=== PATIENT | female | born 2000 | race Two or more races ===

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

== ENCOUNTER 2025-06-07 16:43 | Emergency (ER) | payer MEDICAID, SELFPAY ==
[2025-06-07 16:45] VITALS: BMI 24.5
[2025-06-07 16:51] VITALS: BP 124/86; PULSE 100; RESP 16; TEMP 36.9; O2SAT 96
--- NOTE | 2025-06-07 16:56 | XR_ITS ---
Examination: OB Transvaginal ultrasound of the pelvis, complete Technique: Transvaginal sonographic images pelvis performed using griffin scale imaging Exam date and time: June 07, 2025, 1716 hours INDICATIONS: Vaginal bleeding and pelvic pain beginning 2 days ago FINDINGS: Uterus 8.1 cm, CRL 0.2 cm corresponds to 5 weeks 5 days gestational age Cardiac motion 100 bpm No subchorionic hemorrhage Right ovary 3.3 cm arterial flow, 2.4 cm corpus luteum cyst Left ovary 2.2 cm arterial flow IMPRESSION: Viable intrauterine gestation 5 weeks 5 days.
--- NOTE | 2025-06-07 17:04 | PD.EDVAGBL ---
ED OB Contraction Preg RMI/HPI General Chief complaint: Vaginal Bleeding Stated complaint: VAG BLEEDING 6 WEEKS Time Seen by Provider: 06/07/25 16:53 Arrival date/time: 06/07/25 16:43 RME / HPI RME / HPI Narrative: 24-year-old female whose had 1 prior about a year ago with a vaginal live full-term presents, had a copper IUD placed in February of this year, last menstrual period was on April 25, patient had performed a home test about a week ago and it was positive she subsequently went [facility] and was advised that she need to get her IUD out but they were unable to perform it at that clinic so she subsequently went [facility] a different [facility] days later and was told they were unable to do anything about it it was just after leaving that visit that she began to experience some back pain and pelvic cramping as well as some vaginal bleeding. Patient states that she has gone through 3 pads today and her symptoms have been relatively persistent for the past 3 days. Denies any fever, nausea vomiting, dysuria, diarrhea. Patient states that she can feel her strings. Related Data Home Medications ?Medication ?Instructions ?Recorded ?Confirmed vits no.[id number]-ferrous fum 1 tab PO QDAY 08/07/23 08/14/23 27 mg iron-folic acid 800 mcg tablet ( Vitamin) Previous Rx's ?Medication ?Instructions ?Recorded docusate sodium 100 mg capsule 100 mg PO BID #14 caps 08/16/23 (Colace) cephalexin 500 mg capsule 500 mg PO QID 7 days #28 caps 06/07/25 Allergies Allergy/AdvReac Type Severity Reaction Status Date / Time No Known Allergies Allergy Verified 06/07/25 16:45 ED Exam Narrative Physical exam: Constitutional: Patient alert and oriented. Well appearing. No acute distress. Not toxic appearing. Head: Normocephalic, atraumatic. Eyes: Periorbital regions bilaterally normal to inspection. Conjunctiva clear bilaterally. Sclera anicteric bilaterally. Pupils equal, round, reactive to light bilaterally. Extraocular movements intact bilaterally. Mouth/Throat: Mucous membranes moist. No stridor or muffled voice. No trismus. Handling secretions without difficulty. Airway widely patent. Neck: Supple. Trachea midline. No JVD. No nuchal rigidity. Normal range of motion. Respiratory: Normal effort. No accessory muscle use or respiratory distress. Lungs clear to auscultation bilaterally without rhonchi, wheezes, or crackles. Cardiovascular: RRR. Normal S1/S2. No murmurs or rubs. Radial pulses intact bilaterally. Abdomen: Soft. Non-distended. Non-tender throughout. No pulsatile mass. No guarding or rebound. Negative Garcia?s sign. Negative McBurney?s point tenderness. Negative Rovsing?s. Back: No midline tenderness or step-offs. No CVA tenderness to palpation bilaterally. Upper Extremities: No gross deformities. Lower Extremities: No gross deformities. No edema or calf tenderness. Neuro: Speech normal. No gross motor or sensory deficits to upper or lower extremities bilaterally. GCS 15. CN II?XII grossly intact. Skin: Warm, dry, normal color. Psych: Normal affect. Cooperative. Normal insight. : Pelvic deferred Course Quality Measures none Orders Category Date Time Status Administer Rhogam NOW Care 06/07/25 19:03 Active NPO NOW Care 06/07/25 16:56 Active Diet NPO (NOW) Diet 06/07/25 16:56 Active US OB transvaginal Stat Exams 06/07/25 16:56 Completed Beta HCG,Quantitative Stat Lab 06/07/25 17:12 Completed CBC Stat Lab 06/07/25 17:12 Completed CMP [Comprehensive Metabolic Panel] Stat Lab 06/07/25 17:12 Completed Lipase Stat Lab 06/07/25 17:12 Completed RHOGAM [Rho(D) Immune Globulin] Stat Lab 06/07/25 17:12 Results Type and Screen Stat Lab 06/07/25 17:12 Results UA, C/S IF [Urinalysis, C/S if Indicated] Stat Lab 06/07/25 18:16 Completed Acetaminophen Tab [Tylenol Tab] Med 06/07/25 16:56 Discontinued 650 mg PO X1 ONE Reevaluation(s) Reevaluation #1: At the time of reassessment, the patient remains alert and oriented ?3 with GCS 15. Vitals are normal, pain is controlled, and the patient is tolerating oral intake without nausea or vomiting. The patient is agreeable to discharge and verbalizes understanding of the diagnosis, studies, treatment plan, medications (including side effects/precautions), and strict ER return precautions as discussed in the ED. All concerns were addressed, and the patient is comfortable with the plan. Patient remains hemodynamically stable and serial abdominal exams benign without peritonitis. Vital Signs Vital signs: Vital Signs Temperature 98.5 F 06/07/25 16:51 Pulse Rate 100 06/07/25 16:51 Respiratory Rate 16 06/07/25 16:51 Blood Pressure 124/86 H 06/07/25 16:51 Pulse Oximetry (%) 96 06/07/25 16:51 Oxygen Delivery Method Room Air 06/07/25 16:51 Vaginal Bleeding MDM Narrative MDM Narrative: MDM: This patient is in the first trimester of her and after a careful history, physical exam, and evaluation, is found to be at risk of a miscarriage. The likelihood of an ectopic is extremely low. Patient does have asymptomatic bacteriuria will provide Keflex. The patient is instructed to follow-up with an our on-call non acoustic operator within 48-72 hours for re-evaluation, will leave an IUD as removing it at this time will increase risk for miscarriage per COLLECTION AGENT consult. The patient is warned to return to the ED if she develops significant bleeding, dizziness, syncope, or severe pain. Patient data External records reviewed:: [facility] previous records Clinical information provided by:: patient Social determinants that could affect healthcare access:: none Patient has the following chronic illnesses:: None How is presenting disease/condition affected by chronic disease/condition?: no chronic disease Evaluation data The following diagnostics were reviewed and interpreted by me:: lab results and radiology exam(s) Lab and/or radiology exams considered but not ordered:: Additional Labs and radiology considered, but not ordered as they were not clinically indicated at this time. Interpretation Summary: CBC is notable for a white blood cell count of minimally elevated 11.5 and a normal hemoglobin of 13.9 CMP with minimally low potassium 3.3 otherwise no severe metabolic or electrolyte abnormality Beta-hCG quant [id number] Urine ketones blood squamous cells and rare bacteria noted and cannot exclude asymptomatic bacteriuria Patient's blood type is a negative and she will require RhoGAM which was ordered Patient with a viable IUP at 5 weeks 5 days on ultrasound with a heart tracing 100, good arterial flow bilaterally, right corpus luteal cyst is noted as well Medications / Prescriptions Medications or Prescriptions considered but not ordered:: I considered prescription management (both outpatient prescriptions AND drug treatment in the ER) and decided that this was necessary and was prescribed as charted. Medication administrations:: Medication Administration History Discontinued Medications Acetaminophen (Acetaminophen 325 Mg Tablet) 650 mg PO X1 ONE Stop: 06/07/25 16:57 Last Admin: 06/07/25 17:12 Dose: 650 mg Documented By: ER As noted as well as RhoGAM Consultations Consultation(s) initiated? (list below): Yes Consultation #1 (Physician, Specialty, Details): COLLECTION AGENT, Dr. Burnett, who advised patient okay for close follow-up in the next 2 to 3 days and is patient in his clinic and IUD will be removed in the future at about 10 to 12 weeks as at this time it would be more likely to cause miscarriage, he also advised RhoGAM Time: 19:08 Diagnosis Vaginal Bleeding Differential Diagnosis: threatened , incomplete and vaginal bleeding Most likely diagnosis given after review of the tests above:: Threatened complicated by IUD Admission Indicated Admission indicated?: not indicated Explain why admission is indicated or not indicated:: Escalation of care including admission/observation considered but I decided to discharge because based on the overall clinical presentation, and after consideration of the patient's course in the emergency department and plan for outpatient management, I believe that neither further observation nor inpatient care is required at this time. Admission Request Was there a request for admission?: No Disposition Plan Disposition Plan: Discharge Discharge Attestation Discharge Attestation: The patient and all family members were given an opportunity to ask questions and understood the discharge instructions. Discharge instructions specifically effects, indications for sooner follow up or return to the emergency department, and the expected course of current diagnosis. Patient condition: Stable Discharge Plan Plan Patient Disposition: HOME (Self Care) Patient condition on transfer: Stable Prescriptions/Referrals Prescriptions/Med Rec: New cephalexin 500 mg capsule 500 mg PO QID 7 Days Qty: 28 0RF No Action Vitamin 27 mg iron- 800 mcg Tablet 1 tab PO QDAY docusate sodium [Colace] 100 mg capsule 100 mg PO BID Qty: 14 0RF Referrals: Livia Coleman PA-C [Primary Care Provider, Family Practice] - In 1 week Reji Burnett MD [Physician, COLLECTION AGENT] - In 1 week Problem List Clinical Impression: Threatened Patient/Caregiver Discharge Instructions Education Materials: ED Possible Miscarriage ... Additional Instructions: Follow up with your COLLECTION AGENT medical doctor within 24 hours. Return to the Emergency Room immediately for any new, worsening, continuing symptoms or any concerns at all. Return to the Emergency Room within 24 hours if you are unable to follow up with your COLLECTION AGENT medical doctor within [address] Burnett will see you in the OBGYN clinic in 2-3 days. Print Language: Niuean Stand Alone Forms: [employer] Award Info., Patient Portal Info Letter PA/TILE FINISHER Supervising Physician PA/TILE FINISHER Supervising Physician: Dr. Natarajan
[2025-06-07] MEDS: ACETAMINOPHEN 325 MG TABLET 650 MG PO (17:12)
[2025-06-07 17:23] LABS: Basophils # (Auto) 0.1 Thou/mm3 (0.0-0.2); Basophils % (Auto) 1 % (0-2.5); Eosinophils # (Auto) 0.1 Thou/mm3 (0.0-0.5); Eosinophils % (Auto) 1 % (0-10); Hematocrit 40.3 % (36.0-46.0); Hemoglobin 13.9 g/dL (12.0-16.0); Immature Granulocytes Auto 0.05 Thou/mm3 (0.00-0.00); Lymphocytes # (Auto) 2.2 Thou/mm3 (1.0-4.8); Lymphocytes % (Auto) 19 % (10-50); Mean Corpuscular HGB Conc 34.5 g/dl (31.0-37.0); Mean Corpuscular Hemoglobin 29.1 pg (25.0-35.0); Mean Corpuscular Volume 85 fL (80-100); Monocytes # (Auto) 0.6 Thou/mm3 (0.0-0.8); Monocytes % (Auto) 5 % (0-12); Neutrophils # (Auto) 8.5 Thou/mm3 (1.8-7.7); Neutrophils % (Auto) 74 % (37-80); Nucleated Red Blood Cell # 0.00 Thou/mm3 (0.00-0.00); Nucleated Red Blood Cell % 0 /100 WBC (0); Platelet Count 316 Thou/mm3 (140-440); RDW Standard Deviation 39.0 fL (36.4-46.3); Red Blood Count 4.77 Miln/mm3 (4.00-5.20); White Blood Count 11.5 Thou/mm3 (3.6-11.0)
[2025-06-07 17:51] LABS: Alanine Aminotransferase 34 U/L (10-49); Albumin, Serum 5.1 gm/dL (3.5-5.0); Albumin/Globulin Ratio 2.4 (1.2-2.2); Alkaline Phosphatase 80 U/L (46-116); Anion Gap 12 (7-16); Aspartate Amino Transferase 29 U/L (0-34); BUN/Creatinine Ratio 11 Ratio (12-20); Bilirubin,Total 0.3 mg/dL (0.3-1.2); Blood Urea Nitrogen 9 mg/dL (9-23); Calcium 9.8 mg/dL (8.3-10.6); Calcium (Corrected) 9.8 mg/dL (8.5-10.1); Carbon Dioxide 22.8 mMol/L (20.0-31.0); Chloride 105 mMol/L (98-107); Creatinine (Component) 0.8 mg/dL (0.6-1.3); Estimated Creatinine Clearance 91.0 mL/min (>60); Globulin 2.1 gm/dL (2.3-3.5); Glucose 92 mg/dL (74-106); Lipase 52 U/L (12-53); Osmolality,Calculated 278 (275-295); Potassium 3.3 mMol/L (3.4-5.1); Sodium 140 mMol/L (136-145); Total Protein 7.2 gm/dL (5.7-8.2); eGFR > 60 See Note
[2025-06-07 18:16] LABS: Beta HCG,Quantitative 23036 mIU/mL (<5.0)
[2025-06-07 18:25] LABS: Collection Type, Urine Clean Catch
[2025-06-07 18:32] LABS: Bacteria,Urine Rare; Bilirubin,Urine Negative (Negative); Blood,Urine 1+ (Negative); Clarity,Urine Turbid (Clear/Hazy); Color,Urine Yellow (Lt Yel-Yel); Culture Indicated,Urine Not Indicated; Glucose, Urine Negative (Negative); Ketones,Urine 2+ (Negative); Leukocyte Esterase,Urine Positive (Negative); Nitrite,Urine Negative (Negative); PH,Urine 6.5 (5.0-7.0); Protein,Urine Trace (Neg - Trace); RBC,Urine 9 /hpf (0-3); Specific Gravity,Urine 1.032 (1.001-1.035); Squamous Epithelial Cell,Urine 31 /hpf (0-5); Urobilinogen,Urine Negative mg/dL (0.0-1.0); WBC,Urine 10 /hpf (0-5)
[2025-06-07 19:58] VITALS: BP 121/79; PULSE 94; RESP 16; TEMP 36.9
[2025-06-07 20:14] VITALS: BP 135/79; PULSE 90; RESP 16; TEMP 36.8; O2SAT 99
[2025-06-07 20:29] VITALS: BP 128/78; PULSE 88; RESP 18; TEMP 36.8
== END 2025-06-07 20:31 | disposition home or self-care (01) ==
PROVIDERS: Physician Assistant; Emergency Provider Family Medicine; PCP Physician Assistant
DX: O20.0 Threatened abortion (principal); Z3A.01 Less than 8 weeks gestation of pregnancy
CPT/HCPCS: 36415; 76817; 80053; 81001; 83690; 84702; 85025; 86850; 86900; 86901; 99283; J2790; A9270

== ENCOUNTER 2025-06-14 09:40 | Outpatient (AMB) | payer MEDICAID, SELFPAY ==
--- NOTE | 2025-06-14 09:52 | GYNCLNT_ITS ---
Vital Signs 06/14/25 09:53 Height 1.55 m Height Method Stated Weight 60.838 kg Weight Measurement Method Standing Scale BMI 25.3 BP 114/73 Blood Pressure Source Automatic Cuff Blood Pressure Location Left Upper Arm Position Sitting Respiration 16 Pulse 83 Pulse Source Monitor Temp 98.2 F Temp Source Oral Pulse Oximetry (%) 98 Oxygen Delivery Method Room Air Allergies/Home Meds Allergies & Medications Allergies No Known Allergies Allergy (Verified 06/24/25 10:41) Medication Reconciliation vits no.124-ferrous fum 27 mg iron-folic acid 800 mcg tablet ( Vitamin) 1 tab PO QDAY 08/07/23 [History Confirmed 06/24/25] Intake Visit Data Collection New Patient or Established: Established Patient (seen at 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 Menstrual regularity: regular Flow: normal Monthly: Yes How many days does period last: 5 Age at menarche: 15 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 1. Little interest or pleasure in doing things: not at all 2. Feeling down, depressed, or hopeless: not at all Total score: 0 PHQ-9 3. Trouble falling or staying asleep, or sleeping too much: Not at all 4. Feeling tired or having little energy: Not at all 5. Poor appetite or overeating: Not at all 6. Feeling bad about yourself - or that you are a failure or have let yourself or your family down: Not at all 7. Trouble concentrating on things, such as reading the newspaper or watching television: Not at all 8. Moving or speaking so slowly that other people could have noticed? - Or the opposite - being so fidgety or restless that you have been moving around a lot more than usual: not at all 9. Thoughts that you would be better off or of hurting yourself in some way: Not at all Total score: 0 Source: Developed by Drs. Louie Flores, Myranda Lee, Marcelino Dutta and colleagues, with an educational gonzalez from [email or web address]. Depression screen completed yes Social History Living Situation History Lives With: Family Housing: House Tobacco History Smoking Status: Never smoker Second Hand Smoke Exposure: No Alcohol History Alcohol Intake: Never Domestic Abuse History Do You Feel Safe at Home: Yes History of Present Illness HPI Narrative [facility] is a patient at approximately 5 weeks and 5 days gestation who presents for follow-up after an emergency room visit last week for bleeding during early . During her ER visit last week, she was found to have a viable with heartbeat present despite experiencing bleeding at that time. Currently, she reports feeling a little better but continues to experience some cramping, though she is uncertain if this is normal. She denies any current bleeding. She is also experiencing significant nausea and has been prescribed medication for this symptom, though she has not yet started taking it. The patient works in [employer], which appears to involve being on her feet throughout the day. She expresses desire to continue her obstetric care with this practice rather than seeking care elsewhere. She has a current at gestational age of 5 weeks 5 days as measured during ER visit last week. Patient experienced bleeding but appeared viable with heartbeat detected. The patient has been prescribed Zofran for nausea but hasn't taken yet. ROS: Positive for nausea. - Previous ER visit (last week): Ultrasound showed at 5 weeks 5 days gestation with heartbeat present - Current visit: Bedside ultrasound performed showing sac and placenta, overall appearance normal, but image quality limited by equipment Exam General General Appearance: alert, in no apparent distress and healthy appearing Head Head exam: atraumatic Neck Neck exam: Present normal inspection and trachea midline Chest Chest inspection: Present normal inspection and symmetric chest wall rise External exam: Present normal external exam; Absent tenderness Neuro Neurological exam: Present oriented X3 Psych Psychiatric exam: Present normal affect and normal mood Office Procedures OBC Clinic LOC & Office Proc's Nursing/Assessment Patient Status: Established Patient OB Clinic Nursing Assessment: Medication Reconciliation, Update PMH in EMR and Vital Signs OB Clinic Coordination of Care: Complex Care and Chronic Disease 1-5, Consent,records obtained, informed consent, Education Simp Pt/Fam, 1 Ins Authorization, Lab and Imaging orders, Results/Orders obtained and Staff clarify orders Special Needs: Heart tones Established Patient Charge Established Patient Point Assignment: 150 Established Patient Point Charge: EP Level 4 (120-155) Assessment & Plan Diagnosis / Problem List (1) Hemorrhage in early , unspecified: Status: Acute (2) Vomiting of , unspecified: Status: Acute Plan Early with prior bleeding: - Approximately 6 weeks gestation following ER visit last week. - Measured 5 weeks 5 days with heartbeat present and normal-appearing despite bleeding episode. - Currently experiencing mild cramping but no active bleeding. - Cramping likely normal physiologic response as attaches to uterus. - Bedside ultrasound shows sac and placenta with overall normal appearance. Plan: - Formal ultrasound for better visualization. - Serum hCG blood test. - Work restriction for one week. - Follow-up next week for test results. Nausea in : - Patient experiencing significant nausea, which is common in early . Plan: - Antiemetic medication already prescribed. - Follow-up next week for blood test and ultrasound results.
[2025-06-14 09:53] VITALS: BP 114/73; PULSE 83; RESP 16; TEMP 36.8; O2SAT 98; BMI 25.3
== END 2025-06-14 10:13 | disposition home or self-care (01) ==
LOC: HODSOBC 09:40
PROVIDERS: PCP Physician Assistant; Referring Provider Physician Assistant; Supervising Provider Obstetrics & Gynecology; Visit Provider Obstetrics & Gynecology
DX: O09.891 Supervision of other high risk pregnancies, first trimester (principal); O20.9 Hemorrhage in early pregnancy, unspecified; O21.9 Vomiting of pregnancy, unspecified; Z3A.01 Less than 8 weeks gestation of pregnancy
CPT/HCPCS: 99214; G0463

== ENCOUNTER → 2025-06-18 | Outpatient (CLI) | payer MEDICAID, SELFPAY ==
--- NOTE | 2025-06-18 09:39 | XR_ITS ---
Examination: OB Transvaginal ultrasound of the pelvis, complete Technique: Transvaginal sonographic images pelvis performed using griffin scale imaging Exam date and time: June 18, 2025, 1003 hours INDICATIONS: Vaginal bleeding beginning 3 days ago FINDINGS: Uterus 8.2 cm CRL 1.2 cm corresponds to 7 weeks 3 days gestational age Cardiac motion 156 bpm Adjacent subchorionic hemorrhage 14 x 8 x 16 mm Right ovary 3.4 cm arterial flow 21 x 20 mm corpus luteum cyst Left ovary 2.2 cm arterial flow small follicles IMPRESSION: Viable intrauterine gestation 7 weeks 3 days, consider continued follow-up given the subchorionic hemorrhage
--- NOTE | 2025-06-18 09:39 | XR_ITS ---
Examination: Complete OB ultrasound, less than 14 weeks, transabdominal Date and time of exam: June 18, 2025, 0943 hours INDICATIONS: Vaginal bleeding beginning 3 days ago, clinical diagnosis threatened Technique: Obstetrical ultrasound images less than 14 weeks performed via transabdominal imaging Findings: A normal shaped single intrauterine gestation is present in the uterus. CRL 1.1 cm corresponds to 7 weeks 2 days gestational age Cardiac motion 153 bpm Adjacent subchorionic hemorrhage 20 mm Ultrasonographic survey of visible and placental structures unremarkable. Amniotic fluid volume appears appropriate for this estimated gestational age. Right ovary 4.2 cm arterial flow 28 x 24 mm cyst Left ovary 2.3 cm arterial flow IMPRESSION: Viable intrauterine gestation 7 weeks 2 days, consider continued short-term follow-up given the subchorionic hemorrhage
== END | disposition home or self-care (01) ==
PROVIDERS: PCP Physician Assistant; Referring Provider Obstetrics & Gynecology; Visit Provider Obstetrics & Gynecology
DX: O20.0 Threatened abortion (principal); O26.849 Uterine size-date discrepancy, unspecified trimester; Z3A.01 Less than 8 weeks gestation of pregnancy
CPT/HCPCS: 76801; 76817

== ENCOUNTER 2025-06-24 10:19 | Outpatient (AMB) | payer MEDICAID, SELFPAY ==
[2025-06-24 10:40] VITALS: BP 123/84; PULSE 97; RESP 18; TEMP 36.6; O2SAT 98; BMI 25.1
--- NOTE | 2025-06-24 10:40 | AMB.GYNCLNOT ---
Vital Signs 06/24/25 10:40 Height 1.55 m Height Method Stated Weight 60.384 kg Weight Measurement Method Standing Scale BMI 25.1 BP 123/84 Blood Pressure Source Automatic Cuff Blood Pressure Location Left Upper Arm Position Sitting Respiration 18 Pulse 97 Pulse Source Monitor Temp 97.8 F Temp Source Oral Pulse Oximetry (%) 98 Oxygen Delivery Method Room Air Allergies/Home Meds Allergies & Medications Allergies No Known Allergies Allergy (Verified 06/24/25 10:41) Medication Reconciliation vits no.124-ferrous fum 27 mg iron-folic acid 800 mcg tablet ( Vitamin) 1 tab PO QDAY 08/07/23 [History Confirmed 06/24/25] Intake Visit Data Collection New Patient or Established: Established Patient (seen at [facility] within 3 years) Reason for Visit:: ULTRASOUND AND HCG RESULTS Seen by Clinical Staff ONLY (RN/MA): No Contact Worker Lithography Required: No Do You Feel Safe at Home: Yes Authorities Contacted: N/A PCP or OBGYN visit in last 3 months: Yes Hx Now: No Are you currently on any form of Control: Yes Last menstrual period: 04/25/25 Pain Present Currently: No Pain Scale Used: Frost-Ferrer/Numerical Pain scale:: 0 Smoking Status Smoking Status: Never smoker Immunizations Flu Vaccine in the Last 12 Months: Yes Flu Vaccine Exclusion Criteria: Already 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 Menstrual regularity: regular Flow: normal Monthly: Yes How many days does period last: 4 Age at menarche: 14 Currently 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 1. Little interest or pleasure in doing things: not at all 2. Feeling down, depressed, or hopeless: not at all Total score: 0 PHQ-9 3. Trouble falling or staying asleep, or sleeping too much: Not at all 4. Feeling tired or having little energy: Not at all 5. Poor appetite or overeating: Not at all 6. Feeling bad about yourself - or that you are a failure or have let yourself or your family down: Not at all 7. Trouble concentrating on things, such as reading the newspaper or watching television: Not at all 8. Moving or speaking so slowly that other people could have noticed? - Or the opposite - being so fidgety or restless that you have been moving around a lot more than usual: not at all 9. Thoughts that you would be better off or of hurting yourself in some way: Not at all Total score: 0 Source: Developed by Drs. Louie Flores, Myranda Lee, Marcelino Dutta and colleagues, with an educational gonzalez from [employer]. Depression screen completed yes Social History Living Situation History Lives With: Family Housing: House Tobacco History Smoking Status: Never smoker Second Hand Smoke Exposure: No Alcohol History Alcohol Intake: Never Domestic Abuse History Do You Feel Safe at Home: Yes History of Present Illness HPI Narrative Patient is a at 7 weeks and 3 days gestation, presenting for follow-up from a recent visit for suspected miscarriage. Since her last visit, she reports experiencing some mild cramping, which she describes as normal for this time in . She denies any bleeding like a period since the previous visit. She has been experiencing significant vomiting and reports that she has been vomiting a lot, which is impacting her ability to return to work. She continues to take her vitamins as prescribed. Obstetric History: - GPAL: G1 T0 L0 - Current : Gestational age 7 weeks 3 days by ultrasound, estimated due date January 31, 2026 Medications: - vitamins Social History: - Currently on work leave, planning to return to work in July Diagnostic Test Results and Labs: - Serum HCG (06-07-2025): 23,000 - Serum HCG (06-17-2025): 63,850 - Obstetric ultrasound (06-18-2025): Uterus 8.2 cm, crown rump length corresponds to 7 weeks 3 days gestational age, heartbeat present, small area of blood clot behind placenta noted, estimated due date January 31, 2026 Exam General General Appearance: alert, in no apparent distress and healthy appearing Head Head exam: atraumatic Neck Neck exam: Present normal inspection and trachea midline Chest Chest inspection: Present normal inspection and symmetric chest wall rise External exam: Present normal external exam; Absent tenderness Neuro Neurological exam: Present oriented X3 Psych Psychiatric exam: Present normal affect and normal mood Office Procedures OBC Clinic LOC & Office Proc's Nursing/Assessment Patient Status: Established Patient OB Clinic Nursing Assessment: Medication Reconciliation, Update PMH in EMR and Vital Signs OB Clinic Coordination of Care: Complex Care and Chronic Disease 1-5, Consent,records obtained, informed consent, Education Simp Pt/Fam, 1 Ins Authorization, Lab and Imaging orders, Results/Orders obtained and Staff clarify orders Established Patient Charge Established Patient Point Assignment: 120 Established Patient Point Charge: EP Level 4 (120-155) Assessment & Plan Diagnosis / Problem List (1) Supervision of high risk , unspecified, first trimester: Status: Acute Plan Intrauterine Assessment: Viable intrauterine at 7 weeks 3 days gestation with estimated due date of January 31, 2026. Serial beta-hCG levels show appropriate rise from 23,000 on June 07 to 63,850 on June 17. Ultrasound on June 18 demonstrates crown-rump length corresponding to 7 weeks 3 days with good heartbeat. Small area of blood clot noted behind placenta (subchorionic hematoma). Patient reports resolution of bleeding with only mild cramping, which is normal for gestational age. Plan: - Continue vitamins - Order initial laboratory panel including blood grouping, antibody screening, and infection screening - Provide genetic testing order with specific date restriction - Follow-up appointment in 4 weeks - Return to work clearance provided but patient declined Nausea and vomiting of Assessment: Patient reports significant vomiting during early , impacting ability to return to work. Plan: - Extended work leave until July 29 for symptom management - Work excuse note provided - Instructions to call if cramping, nausea, or vomiting worsens
== END 2025-06-24 11:22 | disposition home or self-care (01) ==
LOC: HODSOBC 10:19
PROVIDERS: Supervising Provider Obstetrics & Gynecology; Visit Provider Obstetrics & Gynecology
DX: O09.891 Supervision of other high risk pregnancies, first trimester (principal); O21.9 Vomiting of pregnancy, unspecified; Z3A.01 Less than 8 weeks gestation of pregnancy
CPT/HCPCS: 99214; G0463